=== PATIENT | female | born 1965 | race Caucasian/White ===

== ENCOUNTER 2016-10-25 22:29 | Emergency (ER) | payer OTHER ==
[~2016-10-25] VITALS: Ht 160 cm; Wt 83.0 kg
[~2016-10-25 22:29] MED LIST: ALBU0.086 INH; ALBU6.7H INH; ALBU8I INH; LEVA750T PO; MEDR4PAK3 PO; NEBUMIS6 INH
[2016-10-25 22:40] VITALS: BP 151/87; PULSE 102; RESP 16; TEMP 99.8; O2SAT 95
[2016-10-25 23:00] VITALS: BP 114/67; PULSE 97; RESP 19; TEMP 98.7; O2SAT 98
[2016-10-25] MEDS ORDERED: SODIUM CHLOR 0.9% 1000 ML INJ 1,000 ML IV SCH (23:01)
[2016-10-25] MEDS ORDERED: IBUP800T23 PO (23:05)
--- NOTE | 2016-10-25 23:07 | PD ---
HPI Chief Complaint: Abdominal Pain Time Seen by Provider: 22:56 Travel History International Travel<30 days: No Contact w/Intl Traveler<30days: No Traveled to known affect area: No History of Present Illness HPI This 51-year-old female is complaining of left lower quadrant pain. She's noted some swelling on the left side of her belly and having pain for a couple of days. Pain she says is quite severe. She did go to work today but the pain got worse she had been having some diarrhea up until yesterday for about 3 days. She says she's been eating okay. She had an episode of diverticulitis about 6 years ago and she says this feels somewhat similar. She has had a cholecystectomy in the past. She is not allergic to any antibiotics. PFSH Past Medical History Arthritis: Yes Asthma: Yes Heart Rhythm Problems: Yes (mitral valve prolapse) Cancer: No Diabetes: No Diminished Hearing: No Hepatitis: No Hiatal Hernia: No Hypertension: No Respiratory: Yes (Asthma) Immunizations Current: No Thyroid Disease: No Menopausal: Yes Past Surgical History Cholecystectomy: Yes (2010) Gynecologic Surgery: Yes (laparoscopy) Tonsillectomy: Yes Other Surgery: Yes Social History Alcohol Use: Yes (3 DRINKS A WEEK) Tobacco Use: Yes (8 CIGARETTES PER WEEK) Substance Use: No Allergies-Medications (Allergen,Severity, Reaction): Coded Allergies: acetaminophen (Unverified Allergy, Severe, NAUSEA, 10/22/16) codeine (Unverified Allergy, Severe, NAUSEA, 10/22/16) oxycodone (Unverified Allergy, Severe, NAUSEA, 10/22/16) Uncoded Allergies: [email or web address] (Allergy, Severe, throat swells, 03/07/11) Reported Meds & Prescriptions Reported Meds & Active Scripts Active Nebulizer (Miscellaneous Medication) Mis 1 Unit INH DIRECTED Medrol Dosepak (Methylprednisolone) 4 Mg [place] 4 Mg PO DIRECTED TAKE DIRECTED Proventil Hfa (Albuterol Sulfate) 6.7 Gm Aero 2 Puff INH Q4H PRN * SHAKE WELL BEFORE USE * Levaquin 750 Mg Tab (Levofloxacin) 750 Mg Tab 750 Mg PO DAILY Reported Ventolin Hfa (Albuterol Sulfate) 8 Gm Aero 2 Puff INH Q6 * SHAKE WELL BEFORE USE * Proventil Ud 0.083% (2.5 Mg/3 Ml) (Albuterol Sulfate) 2.5 Mg/3 Ml Inha 2.5 Mg INH Q4HPRN SOB Review of Systems General / Constitutional: No: Fever, Chills HENT: No: Headaches Cardiovascular: No: Chest Pain or Discomfort, Palpitations Respiratory: No: Cough, Shortness of Breath Gastrointestinal: Positive: Abdominal Pain Genitourinary: No: Urgency, Frequency Musculoskeletal: No: Myalgias, Arthralgias Skin: No Rash, No Itching Neurologic: No: Weakness, Dizziness Psychiatric: No: Anxiety, Depression Hematologic/Lymphatic: No: Easy Bruising Physical Exam Narrative GENERAL: Well-developed female SKIN: Focused skin assessment warm/dry. HEAD: Atraumatic. Normocephalic. EYES: Pupils equal and round. No scleral icterus. No injection or drainage. ENT: No nasal bleeding or discharge. Mucous membranes pink and moist. NECK: Trachea midline. No JVD. CARDIOVASCULAR: Regular rate and rhythm. No murmur appreciated. RESPIRATORY: No accessory muscle use. Clear to auscultation. Breath sounds equal bilaterally. GASTROINTESTINAL: Abdomen soft, there is left mid abdominal tenderness nondistended. Hepatic and splenic margins not palpable. All sounds present MUSCULOSKELETAL: No obvious deformities. No clubbing. No cyanosis. No edema. NEUROLOGICAL: Awake and alert. No obvious cranial nerve deficits. Motor grossly within normal limits. Normal speech. PSYCHIATRIC: Appropriate mood and affect; insight and judgment normal. Data Data Last Documented VS Vital Signs Date Time Temp Pulse Resp B/P Pulse Ox O2 Delivery O2 Flow Rate FiO2 10/25/16 22:40 99.8 102 16 151/87 95 Orders Complete Blood Count With Diff (10/25/16 23:01) Comprehensive Metabolic Panel (10/25/16 23:01) Ua Includes Microscopic (10/25/16 23:01) Ct Abd/Pel W Iv Contrast(Rout) (10/25/16 23:) Iv Access Insert/Monitor (10/25/16 23:) Ecg Monitoring (10/25/16 23:) MDM Medical Decision Making Medical Screen Exam Complete: Yes Emergency Medical Condition: Yes Medical Record Reviewed: Yes Differential Diagnosis Differential includes gastroenteritis, diverticulitis, perforated diverticulitis Narrative Course Patient is complaining of significant pain and I will do a CT scan. She has been started on Unasyn Diagnosis Primary Impression: Diverticulitis Dewayne Porter MD Oct 25, 2016 23:07
[2016-10-25] MEDS ORDERED: ONDANSETRON HCL 4 MG/2 ML VIAL IVP ONE (23:15)
[2016-10-25] MEDS ORDERED: AMPICILLIN-SULBACTAM INJ 3 GM in SODIUM CHLORIDE 0.9% INJ 100 ML IV ONE (23:15)
[2016-10-25] MEDS ORDERED: SODIUM CHLORIDE 0.9% FLUSH 10 ML FLUSH IV FLUSH PRN (23:15)
[2016-10-25] MEDS ORDERED: MORPHINE SULFATE 8 MG/ML INJ IV PUSH ONE (23:15)
[2016-10-25 23:30] LABS: GLUCOSE,URINE NEG (NEG); KETONE, URINE NEG (NEG); NITRITE,URINE NEG (NEG); PH, URINE 5.5 (5.0-8.5)
[2016-10-25 23:31] LABS: AUTOMATED NEUTROPHIL # 7.1 TH/MM3 (1.8-7.7); BASOPHIL # 0.1 TH/MM3 (0-0.2); BASOPHIL % 0.9 % (0.0-2.0); EOSINOPHIL # 0.2 TH/MM3 (0-0.4); EOSINOPHIL % 1.6 % (0.0-4.0); HEMATOCRIT 44.5 % (35.0-46.0); HEMO FLAGS DIFF FINAL; LYMPH % 29.4 % (9.0-44.0); LYMPHOCYTE # 3.5 TH/MM3 (1.0-4.8); MEAN CELL VOLUME 98.7 FL (80.0-100.0); MEAN CORPUSCULAR HEMOGLOBIN 33.3 PG (27.0-34.0); MEAN CORPUSCULAR HGB CONC 33.7 % (32.0-36.0); MONO % 7.9 % (0.0-8.0); NEUT % 60.2 % (16.0-70.0); PLATELET COUNT 208 TH/MM3 (150-450); RED BLOOD COUNT 4.51 MIL/MM3 (4.00-5.30); RED CELL DISTRIBUTION WIDTH 12.6 % (11.6-17.2); WHITE BLOOD COUNT 11.8 TH/MM3 (4.0-11.0)
[2016-10-25 23:33] LABS: BLOOD, URINE MOD (NEG); URINE COLOR STRAW (YELLW/STRAW)
[2016-10-25 23:35] LABS: BACTERIA, URINE OCC /hpf; WBC, URINE 0-2 /hpf (0-5)
[2016-10-25 23:38] LABS: CHLORIDE 104 MEQ/L (98-107); POTASSIUM 3.6 MEQ/L (3.5-5.1); SODIUM (NA) 138 MEQ/L (136-145)
[2016-10-25 23:41] LABS: ANION GAP 7 MEQ/L (5-15); BICARBONATE 26.6 MEQ/L (21.0-32.0); BLOOD UREA NITROGEN 14 MG/DL (7-18)
[2016-10-25 23:44] LABS: ALT (GPT) 54 U/L (10-53); AST (GOT) 27 U/L (15-37)
[2016-10-25 23:45] LABS: GLOMERULAR FILTRATION RATE 129 ML/MIN (>89)
[2016-10-25 23:46] LABS: TOTAL BILIRUBIN ADULT 0.7 MG/DL (0.2-1.0)
[2016-10-25 23:47] LABS: ALKALINE PHOSPHATASE 119 U/L (45-117)
[2016-10-25] MEDS ORDERED: IOHEXOL 350 MG/ML 10 ML VIAL (for RAD DIAG) IV ONE (23:48)
[2016-10-25 23:50] VITALS: BP 134/75; PULSE 92; RESP 18; O2SAT 97
--- NOTE | 2016-10-26 00:26 | RADRPT ---
EXAM DATE/TIME: 10/25/2016 23:54 [facility] COMPARISON: No previous studies available for comparison. INDICATIONS : Left sided abdominal pain today. IV CONTRAST: 93 cc Omnipaque 350 (iohexol) IV ORAL CONTRAST: No oral contrast ingested. RADIATION DOSE: 18.08 CTDIvol (mGy) MEDICAL HISTORY : Diverticulitis. Cardiovascular disease Renal calculi. SURGICAL HISTORY : Tonsillectomy. ENCOUNTER: Initial ACUITY: 1 day PAIN SCALE: 7/10 LOCATION: Left lower quadrant TECHNIQUE: Volumetric scanning of the abdomen and pelvis was performed. Using automated exposure control and ad justment of the mA and/or kV according to patient size, radiation dose was kept as low as reasonably achievable to obtain optimal diagnostic quality images. DICOM format image data is available electro nically for review and comparison. FINDINGS: Lung bases clear. Mild fatty liver. Spleen, adrenals, right kidney and pancreas unremarkable. There a re 3 nonobstructing calculi in the left kidney measuring 1-2 mm. Previous cholecystectomy without candido marcelo dilatation. There is focal mural thickening of the mid left colon associated with colonic diverticula and pericol onic inflammatory change characteristic of an acute diverticulitis. No abscess, obstruction, free flu id or free air. CONCLUSION: 1. Diverticulitis mid left colon without abscess, obstruction, free fluid or free air. 2. Small nonobstructing left renal calculi. Thong Holbrook MD on October 26, 2016 at 0:19 Board Certified Radiologist. This report was verified electronically.
[2016-10-26 00:40] VITALS: BP 124/68; PULSE 87; RESP 16; TEMP 98.7; O2SAT 97
[2016-10-26] MEDS ORDERED: METR-1 PO (01:04)
[2016-10-26] MEDS ORDERED: CIPR-9 PO (01:04)
[2016-10-26] MEDS ORDERED: TRAM50TA PO (01:04)
--- NOTE | 2016-10-26 01:05 | PD ---
Physical Exam Time Seen by Provider: 00:59 Narrative The patient was transferred to [place] by Dr. Gardner to check the CT scan and laboratory results. The patient does not want to be admitted. She states she had diverticulitis 6 years ago. She is driving home and wants pain medicines that she can excelsior picker tomorrow morning. Data Data Last Documented VS Vital Signs Date Time Temp Pulse Resp B/P Pulse Ox O2 Delivery O2 Flow Rate FiO2 10/25/16 22:40 99.8 102 16 151/87 95 Orders Complete Blood Count With Diff (10/25/16 23:01) Comprehensive Metabolic Panel (10/25/16 23:01) Ua Includes Microscopic (10/25/16 23:01) Ct Abd/Pel W Iv Contrast(Rout) (10/25/16 23:01) Iv Access Insert/Monitor (10/25/16 23:01) Ecg Monitoring (10/25/16 23:) Oximetry (10/25/16 23:) Ondansetron Inj (Zofran Inj) (10/25/16 23:15) Ampicillin-Sulbactam Inj (Unasyn Inj) (10/25/16 23:15) Sodium Chlor 0.9% 1000 Ml Inj (Ns 1000 M (10/25/16 23:01) Sodium Chloride 0.9% Flush (Ns Flush) (10/25/16 23:15) Morphine Inj (Morphine Inj) (10/25/16 23:15) Iohexol 350 Inj (Omnipaque 350 Inj) (10/25/16 23:48) Labs Laboratory Tests Test 10/25/16 23:24 White Blood Count 11.8 TH/MM3 Red Blood Count 4.51 MIL/MM3 Hemoglobin 15.0 GM/DL Hematocrit 44.5 % Mean Corpuscular Volume 98.7 FL Mean Corpuscular Hemoglobin 33.3 PG Mean Corpuscular Hemoglobin 33.7 % Concent Red Cell Distribution Width 12.6 % Platelet Count 208 TH/MM3 Mean Platelet Volume 7.8 FL Neutrophils (%) (Auto) 60.2 % Lymphocytes (%) (Auto) 29.4 % Monocytes (%) (Auto) 7.9 % Eosinophils (%) (Auto) 1.6 % Basophils (%) (Auto) 0.9 % Neutrophils # (Auto) 7.1 TH/MM3 Lymphocytes # (Auto) 3.5 TH/MM3 Monocytes # (Auto) 0.9 TH/MM3 Eosinophils # (Auto) 0.2 TH/MM3 Basophils # (Auto) 0.1 TH/MM3 CBC Comment DIFF FINAL Differential Comment Urine Color STRAW Urine Turbidity CLEAR Urine pH 5.5 Urine Specific [place] 1.011 Urine Protein NEG mg/dL Urine Glucose (UA) NEG mg/dL Urine Ketones NEG mg/dL Urine Occult Blood MOD Urine Nitrite NEG Urine Bilirubin NEG Urine Leukocyte Esterase NEG Urine RBC 10-14 /hpf Urine WBC 0-2 /hpf Urine Squamous Epithelial 6-8 /hpf Cells Urine Bacteria OCC /hpf Sodium Level 138 MEQ/L Potassium Level 3.6 MEQ/L Chloride Level 104 MEQ/L Carbon Dioxide Level 26.6 MEQ/L Anion Gap 7 MEQ/L Blood Urea Nitrogen 14 MG/DL Creatinine 0.50 MG/DL Estimat Glomerular Filtration 129 ML/MIN Rate Random Glucose 100 MG/DL Calcium Level 9.7 MG/DL Total Bilirubin 0.7 MG/DL Aspartate Amino Transf 27 U/L (AST/SGOT) Alanine Aminotransferase 54 U/L (ALT/SGPT) Alkaline Phosphatase 119 U/L Total Protein 8.0 GM/DL Albumin 3.8 GM/DL [facility] Medical Record Reviewed: Yes Supervised Visit with MICHELLE: Yes Interpretation(s) The CT abdomen/pelvis shows diverticulitis of the mid left colon without abscess , obstruction, free fluid or free air. Incidentally noted are nonobstructing left renal calculi. The urinalysis shows 10-14 red cells and moderate occult blood but is otherwise normal and culture is not indicated. The complete metabolic profile shows an ALT of 54, alkaline phosphatase of 119 but is otherwise normal. The CBC shows a white count of 11,800 but is otherwise normal. Differential Diagnosis Diverticulitis, left-sided appendicitis, colitis, abdominal pain etiology undetermined. Narrative Course The CT scan shows diverticulitis. I strongly advised the patient to be admitted but she declined and wants to go home. She will be given Flagyl and Cipro and follow-up with a primary care physician. She is to drink increased amounts of clear liquids. Diagnosis Primary Impression: Diverticulitis Med/Other Pt SpecificInfo: Prescription(s) given Scripts Tramadol 50 Mg Tab50 Mg PO Q4H PRN (PAIN) #30 TAB Ref 0 Prov:Jitendra Moreno MD 10/26/16 Ciprofloxacin (Cipro)500 Mg [id number] Mg PO BID 10 Days Ref 0 Prov:Jitendra Moreno MD 10/26/16 Metronidazole (Flagyl)500 Mg [id number] Mg PO TID 10 Days Ref 0 Prov:Jitendra Moreno MD 10/26/16 Disposition: 01 DISCHARGE HOME Condition: Stable Jitendra Moreno MD Oct 26, 2016 01:05
[2016-10-26] MEDS ORDERED: CIPROFLOXACIN 750 MG TAB PO ONE (01:15)
== END 2016-10-26 01:48 | disposition home or self-care (01) ==
LOC: PHED 22:29
DX: K57.32 Diverticulitis of large intestine without perforation or abscess without bleeding (principal); Z72.0 Tobacco use; Z87.39 Personal history of other diseases of the musculoskeletal system and connective tissue; Z87.09 Personal history of other diseases of the respiratory system; Z86.79 Personal history of other diseases of the circulatory system
CPT/HCPCS: 74177; 80053; 81001; 85025; 96361; 96365; 96375; 99285; J0295; J2270; J2405; J7030; Q9967

== ENCOUNTER 2017-01-15 23:14 | Emergency (ER) | payer OTHER ==
[~2017-01-15] VITALS: Ht 167.6 cm; Wt 83.2 kg
[~2017-01-15 23:14] MED LIST changes: -ALBU0.086 INH; -ALBU6.7H INH; -ALBU8I INH; +CIPR-9 PO; +IBUP1TAB7 PO; -LEVA750T PO; -MEDR4PAK3 PO; +METR-1 PO; -NEBUMIS6 INH; +TRAM50TA PO
[2017-01-15 23:21] VITALS: BP 199/100; PULSE 93; RESP 20; TEMP 98.6; O2SAT 98
[2017-01-15 23:38] VITALS: BP 199/100; PULSE 93; RESP 20; O2SAT 98
--- NOTE | 2017-01-15 23:46 | PD ---
HPI Chief Complaint: upper neck pain Time Seen by Provider: 23:31 Travel History International Travel<30 days: No Contact w/Intl Traveler<30days: No Traveled to known affect area: No History of Present Illness HPI The patient is a 51-year-old female who fell about 3 weeks ago and hurt her neck. It was starting to get better but tonight she twisted her neck suddenly and the neck started hurting again midline around C1 through 3. She has some minimal radiation of pain to the right shoulder. The patient denies any numbness or weakness of any of her extremities. She denies any other injury. She is already taking ibuprofen 800 mg 3 times daily. The patient states she has taken Percocet as prescribed by her dentist and had no problem with it. PFSH Past Medical History Arthritis: Yes Asthma: Yes Heart Rhythm Problems: Yes (mitral valve prolapse) Cancer: No Diabetes: No Diminished Hearing: No Hepatitis: No Hiatal Hernia: No Hypertension: No Respiratory: Yes (Asthma) Immunizations Current: No Thyroid Disease: No Menopausal: Yes Past Surgical History Cholecystectomy: Yes (2010) Gynecologic Surgery: Yes (laparoscopy) Tonsillectomy: Yes Other Surgery: Yes Social History Alcohol Use: Yes (3 DRINKS A WEEK) Tobacco Use: Yes (7-8 cigs/daily) Substance Use: No Allergies-Medications (Allergen,Severity, Reaction): Coded Allergies: acetaminophen (Verified Allergy, Severe, NAUSEA, 01/15/17) codeine (Verified Allergy, Severe, NAUSEA, 01/15/17) oxycodone (Verified Allergy, Severe, NAUSEA, 01/15/17) Uncoded Allergies: echo (Allergy, Severe, throat swells, 03/07/11) Reported Meds & Prescriptions Reported Meds & Active Scripts Active Review of Systems Except as stated in HPI: all other systems reviewed are Neg Physical Exam Narrative GENERAL: The patient is alert, oriented 3 and slight apparent distress with her neck pain. Her vital signs show heart rate of 93 with blood pressure 199/ 100 but otherwise normal. SKIN: Focused skin assessment warm/dry. HEAD: Atraumatic. Normocephalic. EYES: Pupils equal and round. No scleral icterus. No injection or drainage. ENT: No nasal bleeding or discharge. Mucous membranes pink and moist. NECK: Trachea midline. No JVD. There is tenderness midline over the posterior spinous processes of C- 2, 3. No posterior spinous process deformity is noted. No swelling is noted. CARDIOVASCULAR: Regular rate and rhythm. No murmur appreciated. RESPIRATORY: No accessory muscle use. Clear to auscultation. Breath sounds equal bilaterally. GASTROINTESTINAL: Abdomen soft, non-tender, nondistended. Hepatic and splenic margins not palpable. MUSCULOSKELETAL: No obvious deformities. No clubbing. No cyanosis. No edema. NEUROLOGICAL: Awake and alert. No obvious cranial nerve deficits. Motor grossly within normal limits. Normal speech. PSYCHIATRIC: Appropriate mood and affect; insight and judgment normal. Data Data Last Documented VS Vital Signs Date Time Temp Pulse Resp B/P (MAP) Pulse Ox O2 Delivery O2 Flow Rate FiO2 01/15/17 23:44 20 01/15/17 23:38 93 199/100 (133) 98 01/15/17 23:[address] Cerv Spine W/O Contrast (01/15/17 23:34) Ketorolac Inj (Toradol Inj) (01/16/17 00:00) Orphenadrine Inj (Norflex Inj) (01/16/17 00:00) MDM Medical Decision Making Medical Screen Exam Complete: Yes Emergency Medical Condition: Yes Medical Record Reviewed: Yes Differential Diagnosis Fracture neck, arthritis neck, herniated nucleus pulposus cervical spine, cervical radiculopathy Narrative Course The patient has arthritis of the neck. The sudden turning movement aggravated this. The patient will be given a soft cervical collar and Flexeril as well as Percocet. She is told not to drink alcohol or drive on the Percocet. The CT cervical spine showed arthritis. Impression: Cervical strain Diagnosis Primary Impression: Cervical strain, acute Additional Instructions: As we discussed, do not drink alcohol or drive on the Percocet. Follow-up with her primary care physician. Med/Other Pt SpecificInfo: Prescription(s) given Scripts Cyclobenzaprine (Flexeril) 10 Mg Tab 10 MG PO TID for Muscle Spasm, #30 TAB 0 Refills Prov: Jitendra Moreno MD 01/16/17 Oxycodone-Acetaminophen (Percocet) 5-325 mg Tab 1 TAB PO Q6H Y for PAIN, #21 TAB 0 Refills Prov: Jitendra Moreno MD 11/9/17 Disposition: 01 DISCHARGE HOME Condition: Stable Jitendra Moreno MD Jan 15, 2017 23:46
[2017-01-16] MEDS ORDERED: ORPHENADRINE INJ 60 MG/2 ML AMP IM ONE
[2017-01-16] MEDS ORDERED: KETOROLAC TROMETHAMINE 60 MG/2 ML (IM) VIAL IM ONE
--- NOTE | 2017-01-16 00:14 | RADRPT ---
EXAM DATE/TIME: 01/15/2017 23:39 [facility] COMPARISON: No previous studies available for comparison. INDICATIONS : Trauma, fall. Neck pain. RADIATION DOSE: 26.28 CTDIvol (mGy) MEDICAL HISTORY : None SURGICAL HISTORY : None. ENCOUNTER: Initial ACUITY: 3 weeks PAIN SCALE: 5/10 LOCATION: neck TECHNIQUE: Volumetric scanning of the cervical spine was performed. Multiplanar reconstructions in the sagittal, coronal and oblique axial planes were performed. Using automated exposure control and adjustment o f the mA and/or kV according to patient size, radiation dose was kept as low as reasonably achievable to obtain optimal diagnostic quality images. DICOM format image data is available electronically f or review and comparison. FINDINGS: Sagittal images demonstrate normal vertebral body alignment and curvature. The odontoid is intact. Th e occipital condyles and lateral masses of C1 are intact. Axial images were performed from C2-C3 to C7-T1. 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 There is ca lcification in the soft tissues posterior to the spinous processes consistent with ligamentum nuchae calcification. 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 C2-C3: A small central protrusion is present impinging on the thecal sac but not significantly deforming the cord. There is no significant spinal canal stenosis. The neural foramina are clear bilaterally. C3-C4: A small central protrusion is present impinging on the thecal sac but not significantly deforming the cord. There is mild facet arthritis bilaterally. The neural foramina are clear bilaterally. C4-C5: There is osteophytic ridging along the posterior aspect of vertebral body. There is no significant sp inal canal stenosis. The neural foramina are clear bilaterally. C5-C6: There is osteophytic ridging along the posterior aspect of vertebral body. The neural foramina are cl ear bilaterally. C6-C7: There is no evidence of disc protrusion or spinal canal stenosis. There is mild facet arthritis on th e left. C7-T1: No significant abnormalities identified. CONCLUSION: 1. Moderate degenerative changes as described above. There is no evidence of acute fracture. Carson Guevara MD on January 16, 2017 at 0:10 Board Certified Radiologist. This report was verified electronically.
[2017-01-16] MEDS ORDERED: CYCL10TA PO (00:36)
[2017-01-16] MEDS ORDERED: PERC5TAB12 PO (00:36)
[2017-01-16 00:45] VITALS: BP 200/100
== END 2017-01-16 01:18 | disposition home or self-care (01) ==
LOC: PHED 23:14
DX: I34.1 Nonrheumatic mitral (valve) prolapse (principal); F17.210 Nicotine dependence, cigarettes, uncomplicated; S16.1XXA Strain of muscle, fascia and tendon at neck level, initial encounter; X50.1XXA Overexertion from prolonged static or awkward postures, initial encounter; W19.XXXA Unspecified fall, initial encounter
CPT/HCPCS: 72125; 96372; 99285; J1885; J2360; L0120

== ENCOUNTER 2017-03-22 20:22 | Emergency (ER) | payer OTHER ==
[~2017-03-22 20:22] MED LIST changes: -CIPR-9 PO; +CYCL10TA PO; -IBUP1TAB7 PO; -METR-1 PO; +PERC5TAB12 PO; -TRAM50TA PO
[2017-03-22] MEDS ORDERED: RESP: ALBUTEROL 2.5 MG/IPRATROPIUM 0.5 MG NEB (SCH) NEB ONE (20:45)
[2017-03-22] MEDS ORDERED: predniSONE 20 MG TAB PO ONE (20:45)
[2017-03-22 20:46] VITALS: O2SAT 98
[2017-03-22 20:47] VITALS: BP 181/96; PULSE 85; RESP 22; TEMP 98; O2SAT 95
[2017-03-22] MEDS ORDERED: MEDR4PAK PO (21:14)
[2017-03-22] MEDS ORDERED: ALBUAER3 INH (21:14)
--- NOTE | 2017-03-22 21:14 | PD ---
HPI . Asthma attack Chief Complaint: Respiratory Distress Time Seen by Provider: 20:32 Travel History International Travel<30 days: No Contact w/Intl Traveler<30days: No Traveled to known affect area: No History of Present Illness HPI 51-year-old female history of asthma, ran out of her inhalers, noted having significant wheezing over the past 6-8 hours worsening over that period. Patient denies any chest pain fever cough chills or sweats thank you. Patient denies any recent upper respiratory infections. [facility] Past Medical History Narrative Medical Past medical history reviewed Arthritis: Yes Asthma: Yes Heart Rhythm Problems: Yes (mitral valve prolapse) Cancer: No Diabetes: No Diminished Hearing: No Hepatitis: No Hiatal Hernia: No Hypertension: No Respiratory: Yes (Asthma) Immunizations Current: No Thyroid Disease: No ?: Not Menopausal: Yes Past Surgical History Cholecystectomy: Yes (2010) Gynecologic Surgery: Yes (laparoscopy) Tonsillectomy: Yes Other Surgery: Yes Social History Alcohol Use: Yes (3 DRINKS A WEEK) Tobacco Use: Yes (2-3 cigs/daily) Substance Use: No Allergies-Medications (Allergen,Severity, Reaction): Coded Allergies: acetaminophen (Verified Allergy, Severe, NAUSEA, 03/22/17) codeine (Verified Allergy, Severe, NAUSEA, 03/22/17) oxycodone (Verified Allergy, Severe, NAUSEA, 03/22/17) Uncoded Allergies: zucchini (Allergy, Severe, throat swells, 03/07/11) Reported Meds & Prescriptions Reported Meds & Active Scripts Active Narrative Medication Allergies and medications reviewed Review of Systems Except as stated in HPI: all other systems reviewed are Neg General / Constitutional: No: Fever Eyes: No: Visual changes HENT: No: Headaches Cardiovascular: No: Chest Pain or Discomfort Respiratory: Positive: Shortness of Breath, Wheezing, No: Orthopnea, Hemoptysis , Stridor, Night Sweats, Pleuritic Pain Gastrointestinal: No: Abdominal Pain Genitourinary: No: Dysuria Musculoskeletal: No: Pain Skin: No Rash Neurologic: No: Weakness Psychiatric: No: Depression Endocrine: No: Polydipsia Hematologic/Lymphatic: No: Easy Bruising Physical Exam Narrative GENERAL: Awake alert oriented 3 mild to moderate respiratory distress. Patient is to get neck SKIN: Warm and dry. Color is normal diaphoresis cyanosis pallor or rashes HEAD: Atraumatic. Normocephalic. EYES: Pupils equal and round. No scleral icterus. No injection or drainage. ENT: No nasal bleeding or discharge. Mucous membranes pink and moist. NECK: Trachea midline. No JVD. Supple full range of motion no stridor CARDIOVASCULAR: Regular rate and rhythm. S1-S2 no murmurs or gallops RESPIRATORY: Patient has bilateral wheezing and prolonged expiratory phase. No rhonchi GASTROINTESTINAL: Abdomen soft, non-tender, nondistended. Hepatic and splenic margins not palpable. MUSCULOSKELETAL: Extremities without clubbing, cyanosis, or edema. No obvious deformities. NEUROLOGICAL: Awake and alert. No obvious cranial nerve deficits. Motor grossly within normal limits. Five out of 5 muscle strength in the arms and legs. Normal speech. PSYCHIATRIC: Appropriate mood and affect; insight and judgment normal. Data Data Last Documented VS Vital Signs Date Time Temp Pulse Resp B/P (MAP) Pulse Ox O2 Delivery O2 Flow Rate FiO2 03/22/17 20:49 22 98 Aerosol Mask 03/22/17 20:47 98.0 85 181/96 (124) 03/22/17 20:46 21 Orders Orders Albuterol-Ipratropium Neb (Duoneb Neb) (03/22/17 20:45) Prednisone (Deltasone) (03/22/17 20:45) Albuterol Hfa Inh (Proair Hfa Inh) (03/22/17 21:15) [facility] Medical Decision Making Medical Screen Exam Complete: Yes Emergency Medical Condition: Yes Medical Record Reviewed: Yes Differential Diagnosis Asthma exacerbation Narrative Course Patient was given albuterol treatment and post treatment with significant improvement and near complete resolution of her wheezing. Patient was also given prednisone 60 mg by mouth Diagnosis Primary Impression: Asthma exacerbation Qualified Codes: J45.901 - Unspecified asthma with (acute) exacerbation Patient Instructions: Asthma (ED), General Instructions Additional Instructions: Up-year-old inhaler 2 puffs every 46 hours as needed for wheezing. Medrol Dosepak tapering steroids as prescribed. Follow-up with your doctor. Return for worsening Scripts Methylprednisolone Dosepak (Medrol Dosepak) 4 Mg Dspk 4 MG PO DIRECTED, #1 DSPK 0 Refills Per Pharmacist direction Prov: Jim Bonilla MD 03/22/17 Albuterol 8.5 GM Inh (Proair Hfa 8.5 GM Inh) 90 Mcg/Act Aer 2 PUFF INH Q4-6H Y for SHORTNESS OF BREATH, #1 INHALER 0 Refills 108 mcg/actuation Prov: Jim Bonilla MD 03/22/17 Disposition: 01 DISCHARGE HOME Condition: Stable Jim Bonilla MD Mar 22, 2017 21:14
[2017-03-22] MEDS ORDERED: ALBUTEROL SULFATE 90 MCG/ACT HFA 8 GM INHALER INH ONE (21:15)
== END 2017-03-22 21:24 | disposition home or self-care (01) ==
LOC: NEDAMB 20:22
DX: J45.901 Unspecified asthma with (acute) exacerbation (principal); I34.1 Nonrheumatic mitral (valve) prolapse; F17.210 Nicotine dependence, cigarettes, uncomplicated; R06.03 Acute respiratory distress; M19.90 Unspecified osteoarthritis, unspecified site; Z88.5 Allergy status to narcotic agent; Z88.6 Allergy status to analgesic agent; Z91.048 Other nonmedicinal substance allergy status
CPT/HCPCS: 94664; 99284; J7512

== ENCOUNTER → 2017-05-28 | Outpatient (CLI) | payer OTHER ==
[~2017-05-28] MED LIST changes: +ALBUAER3 INH; -CYCL10TA PO; +MEDR4PAK PO; -PERC5TAB12 PO
[2017-05-28 14:37] LABS: AUTOMATED NEUTROPHIL # 6.2 TH/MM3 (1.8-7.7); BASOPHIL % 0.5 % (0.0-2.0); EOSINOPHIL # 0.2 TH/MM3 (0-0.4); EOSINOPHIL % 2.2 % (0.0-4.0); HEMOGLOBIN 15.3 GM/DL (11.6-15.3); LYMPH % 30.1 % (9.0-44.0); LYMPHOCYTE # 3.2 TH/MM3 (1.0-4.8); MEAN CELL VOLUME 101.4 FL (80.0-100.0); MEAN CORPUSCULAR HEMOGLOBIN 35.3 PG (27.0-34.0); MEAN CORPUSCULAR HGB CONC 34.8 % (32.0-36.0); MEAN PLATELET VOLUME 7.4 FL (7.0-11.0); MONO % 8.2 % (0.0-8.0); MONOCYTE # 0.9 TH/MM3 (0-0.9); PLATELET COUNT 280 TH/MM3 (150-450); RED BLOOD COUNT 4.34 MIL/MM3 (4.00-5.30); RED CELL DISTRIBUTION WIDTH 12.6 % (11.6-17.2); WHITE BLOOD COUNT 10.5 TH/MM3 (4.0-11.0)
[2017-05-28 15:00] LABS: AST (GOT) 38 U/L (15-37); BICARBONATE 24.8 MEQ/L (21.0-32.0); BLOOD UREA NITROGEN 10 MG/DL (7-18); CALCIUM 9.7 MG/DL (8.5-10.1); CHLORIDE 105 MEQ/L (98-107); CREATININE 0.58 MG/DL (0.50-1.00); GLOMERULAR FILTRATION RATE 109 ML/MIN (>89); GLUCOSE,FASTING 114 MG/DL (74-99); SODIUM (NA) 138 MEQ/L (136-145)
[2017-05-28 15:09] LABS: ALKALINE PHOSPHATASE 118 U/L (45-117); ALT (GPT) 58 U/L (10-53); CHOLESTEROL 304 MG/DL (120-200); CHOLESTEROL/ HDL RATIO 7.18 RATIO; HDL CHOLESTEROL 42.3 MG/DL (40.0-60.0); LDL CHOLESTEROL 203 MG/DL (0-99); TOTAL BILIRUBIN ADULT 0.5 MG/DL (0.2-1.0); TOTAL PROTEIN 8.2 GM/DL (6.4-8.2); TRIGLYCERIDES 293 MG/DL (42-150)
[2017-05-28 17:58] LABS: HEMOGLOBIN A1C 5.8 % (4.3-6.0)
[2017-05-30 17:29] LABS: ESTRADIOL 10 pg/mL; ESTRONE 56 pg/mL
[2017-05-31 17:51] LABS: PROGESTERONE LESS THAN 0.1 ng/mL
== END ==
LOC: CLAB 13:55
DX: N95.9 Unspecified menopausal and perimenopausal disorder (principal); Z13.6 Encounter for screening for cardiovascular disorders; Z12.11 Encounter for screening for malignant neoplasm of colon; Z68.32 Body mass index [BMI] 32.0-32.9, adult
CPT/HCPCS: 36415; 80053; 80061; 82306; 82671; 83001; 83002; 83036; 84144; 84439; 84443; 85025